=== PATIENT | female | born 1980 | race Caucasian/White ===

== ENCOUNTER 2017-09-14 08:15 | Emergency (ER) | payer BC ==
--- NOTE | 2017-09-14 08:45 | PDOC ---
History of Present Illness - History of Present Illness Initial Comments: 09/14/17 09:06 The patient is a 37 year old female, with a significant past medical history of migraines, who presents to the emergency department with persistent headache, nausea, photophobia, and dizziness since 4AM. She states her migraine today feels just like her typical migraine but exaggerated. She reports her headache woke her up from sleep. She reports her headache is typically right sided, however, this morning her headache is diffuse, 10/10 in severity. She reports her migraines are usually managed with ibuprofen and Excedrin. She states she has recently started seeing a neurologist who prescribed her topiramate and rizatriptan. She reports she has been taking topiramate for 5 days and reports taking her rizatriptan this morning, which she states made it worse. She also reports some mild photophobia and dizziness. She denies visual changes. She reports nausea and one episode of nonbloody emesis today, which is unlike my typical migraines. She denies being seen in an ED for her migraines in the past. She denies ever having a head CT or MRI. She denies chest pain, shortness of breath. She denies fever, chills, diarrhea and constipation. She denies dysuria, frequency, urgency and hematuria. Allergies: NKDA Past surgical history: tubal ligation Social history: denies tobacco use, alcohol consumption, or use of illicit drugs <Kimberley Pedro - Last Filed: 09/14/17 09:15> <Reji Hernández - Last Filed: 09/14/17 13:11> - General Chief Complaint: Headache Stated Complaint: HEADACHES, DIZZINESS Past History <Kimberley Pedro - Last Filed: 09/14/17 09:15> - Suicide/Smoking/Psychosocial Hx Smoking History: Never smoked Have you smoked in the past 12 months: No Information on smoking cessation initiated: No Hx Alcohol Use: No Drug/Substance Use Hx: No Substance Use Type: None <Reji Hernández - Last Filed: 09/14/17 13:11> - Past Medical History Allergies/Adverse Reactions: Allergies Allergy/AdvReac Type Severity Reaction Status Date / Time shellfish derived Allergy Verified 09/14/17 08:47 Home Medications: Ambulatory Orders Rizatriptan Benzoate [Rizatriptan] 10 mg PO PRN PRN 09/14/17 Topiramate 50 mg PO DAILY 09/14/17 Review of Systems - Review of Systems Constitutional: No: Chills, Fever HEENTM: No: Recent change in vision, Double Vision, Ear Pain, Throat Pain Respiratory: No: Cough Cardiac (ROS): No: Lightheadedness, Syncope ABD/GI: Yes: Nausea. No: Diarrhea Neurological: Yes: Headache. No: Weakness All Other Systems: Reviewed and Negative <Reji Hernández - Last Filed: 09/14/17 13:11> *Physical Exam - Vital Signs Last Vital Signs Temp Pulse Resp BP Pulse Ox 97.4 F L 94 H 18 186/98 100 09/14/17 08:20 09/14/17 08:20 09/14/17 08:20 09/14/17 08:20 09/14/17 08:20 - Physical Exam Comments: 09/14/17 09:09 GENERAL: The patient is awake, alert, and fully oriented, in no acute distress. HEAD: Normal with no signs of trauma. EYES: Pupils equal, round and reactive to light, extraocular movements intact, sclera anicteric, conjunctiva clear with no pallor. ENT: Ears normal, nares patent, oropharynx clear without exudates. Moist mucous membranes. NECK: Normal range of motion, supple without lymphadenopathy, JVD, or masses. LUNGS: Breath sounds equal, clear to auscultation bilaterally. No wheeze/ crackles. HEART: Regular rate and rhythm, normal S1 and S2 without murmur or rub. ABDOMEN: Soft/nontender/nondistended. BS wnl. No guarding or rebound. No palpable masses. No hepatosplenomegaly. EXTREMITIES: Normal range of motion, no edema. No clubbing or cyanosis. No cords, erythema, or tenderness. NEUROLOGICAL: Cranial nerves II through XII grossly intact. Normal speech, normal gait. PSYCH: Normal mood, normal affect. SKIN: Warm, Dry, normal turgor, no rashes or lesions noted. <Kimberley Pedro - Last Filed: 09/14/17 09:15> - Vital Signs Last Vital Signs Temp Pulse Resp BP Pulse Ox 97.4 F L 94 H 18 186/98 100 09/14/17 08:20 09/14/17 08:20 09/14/17 08:20 09/14/17 08:20 09/14/17 08:20 <Reji Hernández - Last Filed: 09/14/17 13:11> Medical Decision Making - Medical Decision Making 09/14/17 09:39 A portion of this note was documented by scribe services under my direction. I have reviewed the details of the note, within reason, and agree with the documentation with the following case summary and management plan written by me. 37-year-old female with history of migraines presents with headache. Historically, patient was self treating with NSAIDs and Excedrin, recently saw a neurologist and was started on a new medication regimen 5 days ago, was in her usual state of normal health until she awoke from sleep around 4 AM with a left-sided severe headache otherwise typical of her past migraines. Positive associated photophobia and nausea, no focal deficit or vision change or speech change. No injuries, no nuchal rigidity. Patient took her when necessary medication without relief, so she presents for evaluation. Is scheduled to have MRI imaging, awaiting insurance clearance. Afebrile. Eyes closed but well-appearing, conversant and joking with us, speaking full sentences NEURO: Mental status: The patient is alert and oriented x3. Cranial nerves: Cranial nerves II through XII are intact Motor: The upper extremities are 5 over 5 in all muscle groups. The lower extremities are 5 over 5 in all muscle groups. No pronator drift. Sensation: Sensation is intact to light touch throughout. Cerebellar: Mfical-kohmos-ecug is normal in both upper extremities. Heel-knee- teran is normal in both lower extremities. Reflexes: 2+ and symmetric in the upper and lower extremities. Gait: Normal. Heel and toe walking are normal. Tandem gait is normal. 37-year-old female with exacerbation of her migraine, not relieved with home meds. Presentation is consistent with past migraine headaches, just slightly more severe. There are no red flags on history or physical exam, overall well- appearing other than distress from her headache. LMP 1 week ago and s/p tubal ligation Trial IV fluids, Reglan, Benadryl No indication for emergent imaging Reassess 09/14/17 11:40 Pt's sxs did not initially improve with reglan and IVF. CT was ordered. Remained neuro intact. CT negative for acute pathology. Sxs began improving, was able to sleep. Will add Toradol IV then reassess for d/c and neuro f/u. 09/14/17 13:08 markedly improved after toradol. ambulating, smiling, feels much better. Agrees with d/c plan, will f/u with her neurologist. understands return criteria. <Reji Hernández - Last Filed: 09/14/17 13:11> *DC/Admit/Observation/Transfer - Attestations Scribe Attestion: 09/14/17 09:09 Documentation prepared by Kimberley Pedro, acting as front office medical assistant for Reji Hernández MD, <Kimberley Pedro - Last Filed: 09/14/17 09:15> <Reji Hernández - Last Filed: 09/14/17 13:11> Diagnosis at time of Disposition: Migraine Qualifiers: Migraine type: unspecified Status migrainosus presence: without status migrainosus Intractability: not intractable Qualified Code(s): G43.909 - Migraine, unspecified, not intractable, without status migrainosus - Discharge Dispostion Disposition: HOME Condition at time of disposition: Improved - Referrals Referrals: She Shaikh MD [Primary Care Provider] - - Patient Instructions Printed Discharge Instructions: DI for Migraine Additional Instructions: Activity as tolerated. Stay hydrated. A CAT scan performed today shows no acute abnormalities. Continue your medications as previously prescribed by your physician. You should follow up with your primary doctor and neurologist as soon as possible regarding today's emergency department visit. Return to the emergency department for any new or concerning symptoms, particularly persistent or intolerable headache, vision changes or focal weakness, vomiting or fever.
[2017-09-14] MEDS ORDERED: METOCLOPRAMIDE HCL INJECTION 10 MG/2 ML VIAL IVPB ONE (08:48)
[2017-09-14] MEDS ORDERED: SODIUM CHLORIDE 1,000 ML IV ONE (08:48)
[2017-09-14 09:05] VITALS: BMI 29.2
[2017-09-14] MEDS ORDERED: METOCLOPRAMIDE HCL INJECTION 10 MG/2 ML VIAL ONE (09:09)
[2017-09-14] MEDS ORDERED: KETOROLAC TROMETHAMINE 30 MG/1 ML VIAL IVPUSH ONE (11:39)
[2017-09-14] MEDS ORDERED: KETOROLAC TROMETHAMINE 30 MG/1 ML VIAL ONE (11:52)
[2017-09-14 14:03] VITALS: BP 149/100; PULSE 79; TEMP 97.7
== END 2017-09-14 13:30 | disposition home or self-care (01) ==
LOC: JER 08:15
PROC: 3E0333Z Introduction of Anti-inflammatory into Peripheral Vein, Percutaneous Approach (ICD-10-PCS; principal; 2017-09-14)
PROC: 3E033GC Introduction of Other Therapeutic Substance into Peripheral Vein, Percutaneous Approach (ICD-10-PCS; 2017-09-14)
DX: G43.909 Migraine, unspecified, not intractable, without status migrainosus (principal)
CPT/HCPCS: 70450-TC; 99282-25